=== PATIENT | female | born 1945 | race Caucasian/White ===

== ENCOUNTER 2017-11-13 18:47 | Observation (INO) | payer OTHER, MEDICARE ==
[~2017-11-13] VITALS: Ht 160 cm; Wt 68.6 kg
[2017-11-13 19:37] LABS: HEMATOCRIT 37.2 % (36.0-46.0); HEMOGLOBIN 12.8 G/DL (11.9-15.5); MCH 29.5 PG (29.0-34.0); MCHC 34.4 G/DL (30.0-36.0); MCV 85.7 FL (83-99); PLATELET COUNT 241 K/uL (156-360); RBC DIS.WIDTH-CV 12.6 % (11.8-14.6); RBC DIS.WIDTH-SD 39.6 % (39-53); RED BLOOD COUNT 4.34 M/uL (3.80-5.20); WHITE BLOOD COUNT 11.5 K/uL (4.1-10.2)
[2017-11-13 19:43] LABS: INTER. NORMALIZED RATIO 1.2
[2017-11-13 19:45] LABS: PTT 27.5 SEC (25-37)
[2017-11-13 19:48] LABS: CHLORIDE 99 mEq/L (99-109); POTASSIUM 3.2 mEq/L (3.7-5.4); SODIUM 139 mEq/L (136-147)
[2017-11-13 19:49] LABS: GLUCOSE 149 mg/dL (70-99)
[2017-11-13 19:53] LABS: CREATININE 0.9 mg/dL (0.6-1.3); GFR ESTIMATE (CALCULATED) > 59 mL/min/
[2017-11-13 19:54] LABS: UREA NITROGEN (BUN) 19 mg/dL (9-23)
[2017-11-13 19:58] LABS: TROP-I INTERPRETATION NEGATIVE; TROPONIN-I < 0.01 ng/mL (0.0-0.30)
[2017-11-13] MEDS ORDERED: AMLODIPINE BESYL5 MG PO (22:20)
[2017-11-13] MEDS ORDERED: LOPRESSOR50 MG PO (22:20)
[2017-11-13] MEDS ORDERED: ATORVASTATIN CA20 MG PO (22:21)
[2017-11-13] MEDS ORDERED: METFORMIN HCL500 M1 PO (22:22)
[2017-11-13] MEDS ORDERED: FUROSEMIDE20 MG PO (22:22)
[2017-11-13] MEDS ORDERED: VALSARTAN-HCTZ1 EAC3 PO (22:22)
[2017-11-13] MEDS ORDERED: CALCIUM 600 +1 EAC4 PO (22:25)
[2017-11-13] MEDS ORDERED: ONE DAILY1 EAC3 PO (22:26)
[2017-11-14 01:22] LABS: ALBUMIN 4.3 g/dL (3.2-4.8)
[2017-11-14 01:25] LABS: TOTAL PROTEIN 7.6 g/dL (6.4-8.3)
[2017-11-14 01:27] LABS: TOTAL BILIRUBIN 2.2 mg/dL (0.0-1.0)
[2017-11-14 01:28] LABS: ALKALINE PHOSPHATASE 72 IU/L (3-129)
[2017-11-14 01:30] LABS: AST (GOT) 17 IU/L (2-34); DIRECT BILIRUBIN 0.8 mg/dL (0.0-0.3)
[2017-11-14 01:31] LABS: ALT (GPT) 15 IU/L (3-49)
[2017-11-14 01:34] VITALS: BP 135/83
[2017-11-14 01:55] LABS: HEMATOCRIT 34.9 % (36.0-46.0); HEMOGLOBIN 12.1 G/DL (11.9-15.5); MCH 29.7 PG (29.0-34.0); MCHC 34.7 G/DL (30.0-36.0); MCV 85.5 FL (83-99); PLATELET COUNT 245 K/uL (156-360); RBC DIS.WIDTH-CV 12.9 % (11.8-14.6); RBC DIS.WIDTH-SD 39.9 % (39-53); RED BLOOD COUNT 4.08 M/uL (3.80-5.20); WHITE BLOOD COUNT 9.6 K/uL (4.1-10.2)
[2017-11-14 02:02] LABS: HDL CHOLESTEROL 38 MG/DL (Desirable>=50); LDL CHOLESTEROL 61 mg/dL (Desirable<100); NON-HDL CHOLESTEROL 82 mg/dL (Desirable<160); TOTAL CHOLESTEROL 120 mg/dL (Desirable<200); TRIGLYCERIDES 104 MG/DL (Normal: <150)
[2017-11-14 07:31] VITALS: BP 121/61
[2017-11-14 08:37] LABS: TROP-I INTERPRETATION NEGATIVE; TROPONIN-I 0.02 ng/mL (0.0-0.30)
[2017-11-14 09:05] LABS: THYROTROPIN (TSH) 1.6 MIU/L (0.4-5.5)
[2017-11-14 10:55] LABS: HEMOGLOBIN A1c (GLYCOHEMOGLOB) 6.2 % (Below 5.7)
[2017-11-14] MEDS ORDERED: ELIQUIS5 MG PO (14:36)
[2017-11-14] MEDS ORDERED: ASPIR-LOW81 MG PO (14:36)
[2017-11-14 15:08] LABS: TROP-I INTERPRETATION NEGATIVE; TROPONIN-I 0.02 ng/mL (0.0-0.30)
== END 2017-11-14 16:00 | disposition home or self-care (01) ==
LOC: EME → EDBD 18:47 → EDOF 11-14 00:34 → ENRESERV 11-14 00:35 → 5WEST 11-14 01:25
PROVIDERS: Emergency Medicine; Hospitalist; Internal Medicine
DX: I48.91 Unspecified atrial fibrillation (principal); R42 Dizziness and giddiness; D72.829 Elevated white blood cell count, unspecified; I10 Essential (primary) hypertension; E78.5 Hyperlipidemia, unspecified; E87.6 Hypokalemia; E11.40 Type 2 diabetes mellitus with diabetic neuropathy, unspecified; E04.2 Nontoxic multinodular goiter; R60.0 Localized edema; Z79.84 Long term (current) use of oral hypoglycemic drugs; Z90.49 Acquired absence of other specified parts of digestive tract; Z90.710 Acquired absence of both cervix and uterus; Z82.49 Family history of ischemic heart disease and other diseases of the circulatory system; Z83.3 Family history of diabetes mellitus; Z88.0 Allergy status to penicillin
CPT/HCPCS: 70450; 70551; 80048; 80061; 80076; 82948; 83036; 84443; 84484; 85027; 85610; 85730; 93005; 93880; 99281; 99285; G0378; G8978 GP CH; G8979 GP CH; G8980 GP CH; J1650